=== PATIENT | male | born 1990 | race Caucasian/White ===

== ENCOUNTER → 2018-06-21 | Outpatient (CLI) | payer OTHER ==
[~2018-06-21] MED LIST: DEXT20TA24 PO; GABA400C7 PO; TRAM50TA PO; TRAZ-85 PO
--- NOTE | 2018-06-21 23:02 | PAIN ---
DATE OF SERVICE: 06/21/2018 INITIAL CONSULTATION FOR PAIN CLINIC CHIEF COMPLAINT: Low back and right lower extremity pain. HISTORY OF PRESENT ILLNESS: The patient is a 28-year-old male who presents with history of pain for several years, worse over the past 1 year, in the low back and right lower extremity. The patient reports this started in February of 2013 when he was running competitively for the qualifying and injured his right knee initially with wrestling and then with running. The patient had several surgeries with infection, MRSA of the right knee, re-operated most recently in 2015 with his last operation in his right knee; however, he is walking with crutches since that time and has been fairly debilitated from this. Also, pain in the low back radiating to the right lower extremity, mostly in the anterior lateral aspect of the thigh, medial lower leg into the foot and toes, especially the great toe. The patient reports it is worse with standing, walking, changing positions and awakens him from sleep at least twice a night, does not affect her bowel or bladder control, but he is using a crutch on his left side to the right leg and unload the weight from it. The patient has had physical therapy, chiropractic treatments for his back, all with some moderate decrease in pain, but nothing long lasting. The patient has been taking gabapentin, which he did report does take the edge off of the pain. He has had tramadol, ibuprofen, Tylenol, Percocet, OxyContin and Vicodin, none with any significant long lasting relief. The patient rated his disability rate from 0-10, 10 being the worst, as a 10 with family and home responsibilities, 5 with social activity, 7 with occupation, 3 with sexual behavior and 0 with self-care and life support activities and family home responsibilities. The patient did have an MRI scan of the lumbar spine dated 06/02/2018 showing C4 level demonstrated mild bilateral facet hypertrophy and mild buckling ligamentum flavum, L4-L5 showing mild buckling ligamentum flavum and mild bilateral facet hypertrophy as well. No spinal canal stenosis or neural foraminal narrowing identified throughout. The patient reports the pain is constant; becoming more sharp, throbbing, stabbing, tingling and numbness in the foot; radiating from the back of the posterior gluteus into the thigh, medial and medial leg as described. PAST MEDICAL HISTORY: Significant for only the knee surgeries and injury in 2008, 2013, 2014 and 2016 with operative knee surgeries but the patient has been in good health. FAMILY HISTORY: Significant for rheumatoid arthritis. SOCIAL HISTORY: The patient drinks alcohol about 2-3 drinks a week, does not smoke, quit many years ago. Does not use any illegal, illicit or recreational drugs. He is and lives with his spouse, has 3 children living home. Works at the long term in [place], [place] at a seated job at this time. He was taken off of more active job duties and is now in a seated position with a computer. REVIEW OF SYSTEMS: The patient's review of systems is positive for those items mentioned in history of present illness. All systems reviewed and otherwise negative. It is complete, full and well documented on the patient's chart. PHYSICAL EXAMINATION: VITAL SIGNS: His blood pressure is 152/100, pulse is 79, respirations 18 and temperature 98.5 degrees Fahrenheit. Height is 5 feet 10 inches and weight is 241 pounds. GENERAL: The patient is awake, alert, oriented, appropriate and very pleasant demeanor. HEENT: Head shows normocephalic and atraumatic. Extraocular movements are intact and symmetrical. Oral cavity: Mucous membranes moist and pink. Dentition is intact. NECK: Shows anterior throat supple without palpable lymphadenopathy noted. Swallow reflex symmetrical. CHEST: Shows normal with inspection. Breath sounds are clear to auscultation bilaterally. HEART: Shows S1 and S2 clear. No murmurs auscultated. ABDOMEN: Soft, nontender and nondistended. No palpable organomegaly is noted. No rebound or guarding demonstrated. BACK: Shows spine grossly in the midline, normal-appearing cervical lordotic curvature, thoracic kyphotic curvature and lumbar lordotic curvature. The patient's paraspinous musculature in the lumbar distribution shows symmetrical on inspection, with palpation shows some moderate tenderness diffusely bilaterally, but only diffusely without radiation. No trigger points. No atrophy, hypertrophy and is only tender in the lower distribution of the paraspinous musculature. The patient has good rotational motion of the lumbar spine without difficulty with extension and flexion and right and left lateral rotation. Lower extremities show deep tendon reflexes 2+ in the patellar and tendo-calcaneus tendons on the left side. Right side shows 1+ in the right patellar and tendo-calcaneus tendons. Motor exam is strong with 5/5 on the left and 4/5 on the right dorsiflexion, extension, quadriceps and hamstring flexion. Peripheral pulses are 1+ posterior tibial. No peripheral edema is noted bilaterally. The patient's skin shows warm and dry. Good turgor. No edema. No sores, rashes or bruising. He is able to stand, has difficulty putting all his weight on his right leg secondary to his knee and he is using a crutch into his left arm to ambulate with a significant limping favoring gait of the right lower extremity secondary to knee pain. MEDICATIONS: Include trazodone, tramadol, gabapentin and amphetamine salts. ALLERGIES: The patient has no known drug allergies. IMPRESSION: 1. This is a 28-year-old male with pain in the low back, right lower extremity in radicular fashion. 2. MRI scan of the lumbar spine as noted. 3. Right knee pain secondary to multiple surgeries. PLAN: Options were discussed with the patient including conservative medical management, physical therapy, interventional techniques. He would like to proceed with interventional techniques. We discussed a lumbar epidural steroid injection using description as well as anatomical models to describe the procedure. The patient would like to proceed with this. We will wait for preauthorization with clear radicular pain in the L4-L5 dermatomal distribution on the right. Once this is obtained, we will have the patient return, we will plan on lumbar epidural steroid injection at that time. RUDY HAGAN MD DR: ANILA/ron JOB#: [id number] / [id number]
== END | disposition home or self-care (01) ==
LOC: PNCL 10:45
PROVIDERS: ATTEND Anesthesiology
DX: M25.561 Pain in right knee (principal); M54.5 Low back pain; Z82.61 Family history of arthritis
CPT/HCPCS: G0463

== ENCOUNTER → 2018-06-25 | Outpatient (CLI) | payer OTHER ==
[~2018-06-25] MED LIST changes: +IOHEXOL 180 MG/ML 10 ML VIAL. ONE; +methylPREDNISolone ACETATE 40 MG/ML VIAL. ONE; +methylPREDNISolone ACETATE 80 MG/ML VIAL. ONE
--- NOTE | 2018-06-25 22:02 | PAIN ---
DATE OF SERVICE: 06/25/2018 PROGRESS NOTE FOR PAIN CLINIC DIAGNOSES: Lumbar radiculopathy with lumbar degenerative disk disease. HISTORY OF PRESENT ILLNESS: The patient 28-year-old male who returns for followup after initial evaluation and preauthorization for a lumbar epidural steroid injection. The patient still reports pain in low back, right lower extremity unchanged. The patient reports it is a 10 on a scale of 10 at its worst, 6 on average, 4 at its least and is a 6 today. The patient reports it does awaken him from sleep about every 6-7 hours, on his right side, still with some weakness in the right leg, is using a cane to walk in his left hand with some significant fatigability of the right leg. The patient reports it is radiating, becoming more constant, aching, sharp in quality across the low back and into the right lower extremity, mostly in the posterior gluteus, lateral anterior thigh, anterior medial thigh, medial lower leg and posterior lower leg on the right. The patient reports no new motor or sensory deficits and no new bowel or bladder incontinence or other complaints. PHYSICAL EXAMINATION: VITAL SIGNS: The patient's blood pressure is 140/111, pulse 84, respirations are 18, temperature 98.0 degrees Fahrenheit, height is 5 feet 10 inches and weight is 245 pounds. GENERAL: The patient is awake, alert, oriented, appropriate and very pleasant demeanor. HEENT: Head shows normocephalic and atraumatic. Extraocular movements are intact and symmetrical. Oral cavity: Mucous membranes are moist and pink. Dentition is intact. NECK: Shows anterior throat supple without palpable lymphadenopathy noted. Swallow reflex is symmetrical. CHEST: Shows normal on inspection. Breath sounds clear to auscultation bilaterally. HEART: Shows S1 and S2 clear. No murmurs auscultated. ABDOMEN: Soft, nontender and nondistended. No palpable organomegaly is noted. No rebound or guarding demonstrated. BACK: Shows spine grossly in the midline. Normal appearing thoracic kyphosis and lumbar lordotic curvature. Lumbar paraspinous musculature shows symmetrical on inspection, on palpation shows some moderate tenderness diffusely but without radiation. The patient has good rotational motion of the lumbar spine, both laterally as well as extension and flexion without significant pain reported. EXTREMITIES: Lower extremities show deep tendon reflexes 2+ in the left and 1+ in the right patellar tendon and tendo-calcaneus tendons are 1+ bilaterally. Motor exam is 5/5 on the left and 4/5 on the right with dorsiflexion and extension. Peripheral pulses are 1+ posterior tibia. No peripheral edema is noted bilaterally. Options were discussed with the patient. The patient's old chart was reviewed as well as his current medication regimen updated. Current review of systems updated today as well. We will proceed with a lumbar epidural steroid injection today with fluoroscopic guidance. Risks were again discussed including, but not limited to bleeding, infection, possibility of epidural hematoma, subsequent neurological compromise, dural puncture, headaches, spinal cord and/or nerve damage, side effects of steroid medication and poor results regarding pain control. The patient understands and wished to proceed. The patient will return to the clinic in approximately 2 weeks for followup, was counseled as to return appointment, activity level and side effects to be aware of. DIAGNOSIS: Lumbar radiculopathy with lumbar degenerative disk disease. PROCEDURE: Lumbar epidural steroid injection, translaminar approach L4-L5 level using C-arm fluoroscopic guidance under sterile prep and drape using local anesthetic. MEDICATION INJECTED: A total of 120 mg Depo-Medrol plus 10 mL of preservative-free normal saline and 2 mL of Isovue for contrast. CONDITION AT DISCHARGE: Stable. The patient tolerated procedure well and had no complications. RUDY HAGAN MD DR: ANILA/ron JOB#: [id number] / [id number]
== END | disposition home or self-care (01) ==
LOC: PNCL 11:05
PROVIDERS: ATTEND Anesthesiology
DX: M51.16 Intervertebral disc disorders with radiculopathy, lumbar region (principal)
CPT/HCPCS: 62323; J1030; J1040; Q9965

== ENCOUNTER → 2018-07-12 | Outpatient (CLI) | payer OTHER ==
[~2018-07-12] MED LIST changes: +TRAZ-118 PO; -TRAZ-85 PO
--- NOTE | 2018-07-12 22:32 | PAIN ---
DATE OF SERVICE: 07/12/2018 PROGRESS NOTE FOR PAIN CLINIC DIAGNOSIS: Lumbar radiculopathy with lumbar degenerative disk disease. HISTORY OF PRESENT ILLNESS: The patient is a 28-year-old male who returns for followup status post lumbar epidural steroid injection x 1 on June 25. The patient did very well with about a 50% improvement overall, still some pain in the low back and right lower extremity. Pain came back fairly quickly in intensity once it returned after a few weeks. The patient reports he was increasing his activity, sleeping much better at night, now is beginning to bother him to some extent. The patient reports the pain is 10 on a scale of 10 at its worst, 7 on average, 4 at its least and is a 4 today. The patient reports it is aching, cramping, constant in the low back and the right lower extremity, mostly in the anterior thigh, lateral thigh, medial lower leg and medial ankle on the right side with increased activity and walking. The patient reports no new motor or sensory deficits and for the first few weeks, he is doing much better. PHYSICAL EXAMINATION: VITAL SIGNS: The patient's blood pressure 160/92, pulse 90, respirations 16 and temperature is 97.6 degrees Fahrenheit. Height is 5 feet 10 inches and weight is 246 pounds. GENERAL: The patient is awake, alert, oriented, appropriate and very pleasant demeanor. HEENT: Head shows normocephalic and atraumatic. Extraocular movements are intact and symmetrical. Oral cavity: Mucous membranes moist and pink. Dentition is intact. NECK: Shows anterior throat supple without palpable lymphadenopathy noted. Swallow reflex is symmetrical. CHEST: Shows normal on inspection. Breath sounds clear to auscultation bilaterally. HEART: Shows S1 and S2 clear. No murmurs auscultated. ABDOMEN: Soft, nontender and nondistended. No palpable organomegaly is noted. No rebound or guarding demonstrated. BACK: Shows spine grossly in the midline. Normal appearing thoracic kyphosis and lumbar lordotic curvature. Lumbar paraspinous musculature shows symmetrical on inspection, with palpation shows some [id number] tenderness diffusely in the low lumbar distribution but only diffusely without radiation. EXTREMITIES: The patient's lower extremities show deep tendon reflexes 2+ in the patellar on the left and 1+ on the right. Tendo-calcaneus tendons are 1+ bilaterally. Motor exam is strong with approximately 4 on a scale of 5 on the right and 5/5 on the left with dorsiflexion, extension but intact. Peripheral pulses are 1+ posterior tibia. No peripheral edema is noted bilaterally. Options were discussed with the patient. The patient's old chart was reviewed as well as his current medication regimen updated. Current review of systems updated today as well and we will proceed with a second in the series of lumbar epidural steroid injection today with fluoroscopic guidance. Risks were again discussed including, but not limited to bleeding, infection, possibility of epidural hematoma, subsequent neurological compromise, dural puncture, headaches, spinal cord and/or nerve damage, side effects of steroid medication and poor results regarding pain control. The patient understands and wished to proceed. The patient will return to the clinic in approximately 2 weeks for followup, was counseled as to return appointment, activity level and side effects to be aware of. DIAGNOSIS: Lumbar radiculopathy with lumbar degenerative disk disease. PROCEDURE: Lumbar epidural steroid injection, translaminar approach at L4-L5 level using C-arm fluoroscopic guidance under sterile prep and drape using local anesthetic. MEDICATION INJECTED: A total of 120 mg Depo-Medrol plus 10 mL of preservative-free normal saline and 2 mL of Isovue for contrast. CONDITION AT DISCHARGE: Stable. The patient tolerated the procedure well and had no complications. RUDY HAGAN MD DR: ANILA/ron JOB#: [id number] / [id number]
== END | disposition home or self-care (01) ==
LOC: PNCL 09:25
PROVIDERS: ATTEND Anesthesiology
DX: M51.16 Intervertebral disc disorders with radiculopathy, lumbar region (principal)
CPT/HCPCS: 62323; J1030; J1040; Q9965

== ENCOUNTER → 2018-07-26 | Outpatient (CLI) | payer OTHER ==
[~2018-07-26] MED LIST changes: -IOHEXOL 180 MG/ML 10 ML VIAL. ONE; -methylPREDNISolone ACETATE 40 MG/ML VIAL. ONE; -methylPREDNISolone ACETATE 80 MG/ML VIAL. ONE
--- NOTE | 2018-07-26 10:40 | PAIN ---
DATE OF SERVICE: 07/26/2018 PROGRESS NOTE FOR PAIN CLINIC DIAGNOSIS: Lumbar radiculopathy with lumbar degenerative disk disease. HISTORY OF PRESENT ILLNESS: The patient is a 28-year-old male who returns for followup status post lumbar epidural steroid injection x 2. The patient reports about 20% overall but reports he is "much better" at the low back and right lower extremity pain. The patient reports he is still using his cane and does have that with him today with ambulating and holding it in his right hand. The patient reports that the pain is in the low back and right lower extremity, mostly in the posterior lateral thigh, lateral anterior thigh, anterior medial thigh, medial lower leg into the calf on the medial aspect and anterior aspect. The patient reports it is a 10 on a scale of 10 at its worst, 5 on average, 4 at its least and is a 4 today. The patient reports it is aching, tingling, cramping, stabbing, worse with walking and standing. The patient reports he does not use his cane. The pain at the end of the day is much worse in his back than with the cane. The patient reports sleeps about 4 hours at a time but occasionally awakens him from sleep but not most nights. The patient reports he has been increasing his distance walking again with his cane and able to do work activities, household activities and traveling with greater ease and comfort since his last visit and is very pleased with his progress thus far. The patient reports no new motor or sensory deficits and no new bowel or bladder incontinence or other complaints. PHYSICAL EXAMINATION: VITAL SIGNS: Today, the patient's blood pressure is 142/97, pulse 96, respirations 16 and temperature 98.1 degrees Fahrenheit. Height is 5 feet 10 inches and weight is 245 pounds. GENERAL: The patient is awake, alert, oriented, appropriate and very pleasant demeanor. HEENT: Shows normocephalic and atraumatic. Extraocular movements are intact and symmetrical. Oral cavity: Mucous membranes are moist and pink. Dentition is intact. NECK: Shows anterior throat supple without palpable lymphadenopathy noted. Swallow reflex symmetrical. CHEST: Shows normal on inspection. Breath sounds are clear to auscultation bilaterally. HEART: Shows S1 and S2 clear. No murmurs auscultated. ABDOMEN: Soft, nontender and nondistended. No palpable organomegaly is noted. No rebound or guarding demonstrated. BACK: Shows spine grossly in the midline. Normal appearing thoracic kyphosis and lumbar lordotic curvature. Lumbar paraspinous musculature shows symmetrical on inspection and palpation shows some moderate tenderness diffusely but only diffusely without radiation. The patient shows good rotational motion of the lumbar spine, both laterally as well as extension and flexion without significant difficulty. EXTREMITIES: The patient's lower extremity show deep tendon reflexes at 2+ in the patellar bilaterally and tendo-calcaneus tendons 1+ bilaterally as well. Motor exam shows dorsiflexion and extension at 5/5 and equal and symmetrical. Peripheral pulses are 1+ posterior tibial. No peripheral edema is noted. Options were discussed with the patient. The patient's old chart was reviewed as well as his current medication regimen updated. Current review of systems updated today as well. We will hold on any further injections as the patient is doing quite a bit better. Encourage to increase his activity with walking and to try and use the cane less and see how this does with activity and pain level. The patient also [place] and at the [facility] and encouraged him to maintain doing this as well and continue it as well as heat and massage therapies in the low back and stretching, which he has been doing as well. The patient will return to clinic at this time on as needed basis. We will hold on any further injections at this time per the patient's request and he would like to increase his activity and see how he does. If not significantly improve, the patient will return for a third lumbar epidural steroid injection in the future as he does have still clinical radiculopathy in the L4-L5 dermatome on the right. We will have him return at this time on an as needed basis. RUDY HAGAN MD DR: ANILA/ron JOB#: [id number] / [id number]
== END | disposition home or self-care (01) ==
LOC: PNCL 09:27
PROVIDERS: ATTEND Anesthesiology
DX: M51.16 Intervertebral disc disorders with radiculopathy, lumbar region (principal)
CPT/HCPCS: G0463

== ENCOUNTER → 2018-09-14 | Outpatient (CLI) | payer OTHER ==
[~2018-09-14] MED LIST changes: +IOHEXOL 180 MG/ML 10 ML VIAL. ONE; +methylPREDNISolone ACETATE 40 MG/ML VIAL. ONE; +methylPREDNISolone ACETATE 80 MG/ML VIAL. ONE
--- NOTE | 2018-09-15 01:11 | PAIN ---
DATE OF SERVICE: 09/14/2018 Progress note for pain clinic. DIAGNOSES: Lumbar radiculopathy with lumbar degenerative disk disease. HISTORY OF PRESENT ILLNESS: The patient is a 28-year-old male who returns for followup status post lumbar epidural steroid injection x 2. The patient reports about 50% improvement after the most recent injection but only for about a week or so. The patient reports the pain is returning now in the low back and into the right lower extremity as it was previously. The patient reports no new motor or sensory deficits, still significant pain in the low back and leg. The patient reports it is aching, sharp, tingling, stabbing, becoming more constant, more severe with walking and with activity and with time. He reports it is a 10 on a scale of 10 at its worst, 7 on average, 5 at its least and is a 7 today. The patient reports no new motor or sensory deficits, no new bowel or bladder incontinence or other complaints, but better with lying down or sitting, does not awaken him from sleep at night, much worse with walking and standing. PHYSICAL EXAMINATION: VITAL SIGNS: The patient's blood pressure 149/92, pulse 101, respirations 18, temperature 98.5 degrees Fahrenheit, height is 5 feet 10 inches and weight is 240 pounds. GENERAL: The patient is awake, alert, oriented, appropriate, very pleasant demeanor. HEENT: Head is normocephalic, atraumatic. Extraocular movements are intact and symmetrical. Oral cavity, mucous membranes are moist and pink. Dentition is intact. NECK: Shows anterior throat supple without palpable lymphadenopathy noted. Swallow reflex is symmetrical. CHEST: Shows normal with inspection. Breath sounds clear to auscultation bilaterally. HEART: Shows S1, S2 clear. No murmurs auscultated. ABDOMEN: Soft, nontender, nondistended. No palpable organomegaly is noted. No rebound or guarding demonstrated. BACK: Shows spine grossly in the midline. The patient's back shows paraspinous musculature moderately tender with palpation in the lumbar distribution throughout the upper, middle and lower distribution of paraspinous muscles, but without specific radiation, without trigger points. The patient has good rotational motion of lumbar spine, both laterally as well as extension and flexion without significant difficulty. EXTREMITIES: The patient's lower extremities show deep tendon reflexes 2+ in the patellar, 1+ tendo-calcaneus tendons and 2+ on the left patellar and 1+ on the right patellar and 1+ bilateral tendo calcaneus tendons. Motor exam is strong with dorsiflexion, extension, quadriceps and hamstring flexion equal and 5/5 bilaterally. Peripheral pulses are 1+ posterior tibial. No peripheral edema is noted. Options were discussed with the patient. The patient's old chart was reviewed as his current medication regimen updated. Current review of systems updated today as well. We will proceed with a third in the series of lumbar epidural steroid injection today with fluoroscopic guidance. Risks were again discussed including, but not limited to bleeding, infection, possibility of epidural hematoma and subsequent neurological compromise, dural puncture, headaches, spinal cord and/or nerve damage, side effects of steroid medication and poor results regarding pain control. The patient understands and wished to proceed. The patient will return to clinic in approximately 2 weeks for followup, was counseled to return appointment, with his level and side effects to be aware of. DIAGNOSIS: Lumbar radiculopathy with lumbar degenerative disk disease. PROCEDURE: Lumbar epidural steroid injection, translaminar approach L4-L5 level using C-arm fluoroscopic guidance under sterile prep and drape using local anesthetic. MEDICATION INJECTED: A total of 120 mg Depo-Medrol plus 10 mL of preservative-free normal saline and 2 mL of contrast. CONDITION AT DISCHARGE: Stable. The patient tolerated procedure well, had no complications. RUDY HAGAN MD DR: ANILA/ron JOB#: [id number] / [id number]
== END | disposition home or self-care (01) ==
LOC: PNCL 11:24
PROVIDERS: ATTEND Anesthesiology
DX: M51.16 Intervertebral disc disorders with radiculopathy, lumbar region (principal)
CPT/HCPCS: 62323; J1030; J1040; Q9965

== ENCOUNTER → 2018-10-12 | Outpatient (CLI) | payer OTHER ==
[~2018-10-12] MED LIST changes: -IOHEXOL 180 MG/ML 10 ML VIAL. ONE; -methylPREDNISolone ACETATE 40 MG/ML VIAL. ONE; -methylPREDNISolone ACETATE 80 MG/ML VIAL. ONE
--- NOTE | 2018-10-12 13:39 | PAIN ---
DATE OF SERVICE: 10/12/2018 DIAGNOSIS: Lumbar radiculopathy with lumbar degenerative disk disease . HISTORY OF PRESENT ILLNESS: The patient is a 28-year-old male who returns for followup status post lumbar epidural steroid injections x 3, most recently on 09/14/2018. The patient reports he did very well for about 3 weeks, 80%-90% improvement in the low back and right lower extremity pain. The patient reports still significant pain with his right knee, with his back and his right leg which will be much better with his radicular qualities of pain. The pain began to return gradually and is returning now and over the past week it has been a 10 on a scale of 10 at its worst, 7 on average, 5 at its least and is a 5 today. Worse with standing, walking, changing positions, even sitting for more than 15-20 minutes can exacerbate the pain as well. Still reports pain in the low back, radiating to the right lower extremity, posterior gluteus, posterolateral thigh, lateral anterior thigh, medial thigh and lower leg on the right side as well as some knee pain. The patient is wearing a knee brace with a lateralizing stability brace on the right side today as well. The patient reports the pain is aching, sharp, tingling, becoming more constant with walking, standing, changing positions. Better with lying down, but does awaken him from sleep at least once or twice at night. The patient reports no new motor or sensory deficits, no new bowel or bladder incontinence. PHYSICAL EXAMINATION: VITAL SIGNS: The patient's blood pressure is 139/87, pulse is 84, respirations are 16, temperature is 97.8 degrees Fahrenheit. Height is 5 feet 10 inches, weight is 242 pounds. GENERAL: The patient is awake, alert, oriented, appropriate, very pleasant demeanor. HEENT: Head is normocephalic, atraumatic. Extraocular muscles are intact and symmetrical. Oral cavity: Mucous membranes moist and pink. Dentition is intact. NECK: Shows anterior throat supple without palpable lymphadenopathy noted. Swallow reflex is symmetrical. CHEST: Shows normal with inspection. Breath sounds are clear bilaterally. HEART: Shows S1, S2 clear. ABDOMEN: Obese, soft, nontender, nondistended. BACK: Shows spine grossly in the midline, normal-appearing cervical lordotic curvature, thoracic kyphotic curvature and lumbar lordotic curvature. Lumbar paraspinous muscle shows symmetrical on inspection with some mild tenderness throughout the upper, middle and lower distribution of paraspinous muscles diffusely bilaterally, but only diffusely without radiation. The patient has good rotational motion of lumbar spine, both laterally as well as extension and flexion without significant increase in pain, no tenderness over the sacrum or sacroiliac regions or the spinous processes. EXTREMITIES: Lower extremities show deep tendon reflexes 2+ in the left and 1+ in the right patellar tendon. Motor exam is strong with 5/5 dorsiflexion, extension on the left and 4/5 on the right. Peripheral pulses are 1+ posterior tibia. No peripheral edema is noted. Options were discussed with the patient. The patient's old chart was reviewed as his current medication regimen updated. Current review of systems updated today as well. We will recommend physical therapy for the patient now as he has had 3 injections in the last 6 months with very good results initially but after for about 3 weeks or so, the pain returns in a radicular fashion in the low back and right lower extremity. The patient's MRI scan was reviewed as well, not showing any significant stenosis in the lumbar spine at this time. We will encourage physical therapy, also water therapy I feel would be very beneficial for the patient as well with some conditioning, strengthening and stretching exercises also. The patient understands and agrees and would like to look into this. We will make these recommendations through his primary physician through his [facility]. RUDY HAGAN MD DR: ANILA/ron JOB#: [id number] / [id number]
== END | disposition home or self-care (01) ==
LOC: PNCL 10:25
PROVIDERS: ATTEND Anesthesiology
DX: M51.16 Intervertebral disc disorders with radiculopathy, lumbar region (principal); M40.294 Other kyphosis, thoracic region; M54.5 Low back pain; M25.561 Pain in right knee
CPT/HCPCS: G0463